=== PATIENT | male | born 1970 | race Caucasian/White ===

== ENCOUNTER 2018-06-03 13:38 | Emergency (ER) | payer OTHER ==
[2018-06-03 13:38] VITALS: BMI 30.1
[2018-06-03 13:53] VITALS: O2SAT 97
--- NOTE | 2018-06-03 14:42 | RAD ---
HISTORY: COMPARISON: 11/08/2014. TECHNIQUE: Chest PA and lateral FINDINGS: LINES AND TUBES: None. LUNG AND PLEURA: The lungs are well inflated and clear. No pleural effusion or pneumothorax. HEART AND MEDIASTINUM: The heart is not enlarged. The hilar and mediastinal contours are within normal limits. SKELETAL STRUCTURES: The bony structures are within normal limits for the patient's age. VISUALIZED UPPER ABDOMEN: Normal. OTHER FINDINGS: None. IMPRESSION: No active pulmonary disease.
[2018-06-03 14:44] LABS: BASO % 0.3 % (0.0-2.0); EOS # 0.2 K/uL (0.0-0.7); HEMOGLOBIN 13.7 g/dL (12.0-18.0); LYMPH # 1.6 K/uL (1.0-4.3); LYMPH % 28.4 % (20.0-40.0); MEAN CELL VOLUME 83.2 fL (80.0-94.0); MEAN CORPUSCULAR HEMOGLOBIN 27.4 pg (27.0-31.0); MEAN CORPUSCULAR HGB CONC 32.9 g/dL (33.0-37.0); MEAN PLATELET VOLUME 9.7 fL (7.2-11.7); MONO # 0.6 K/uL (0.0-0.8); MONO % 10.7 % (0.0-10.0); NEUT # 3.2 K/uL (1.8-7.0); NEUT % 57.6 % (50.0-75.0); NRBC % 0.1 % (0.0-2.0); RBC 4.99 Mil/uL (4.40-5.90); RED CELL DISTRIBUTION WIDTH 14.1 % (11.5-14.5); WHITE BLOOD COUNT 5.6 K/uL (4.8-10.8)
--- NOTE | 2018-06-03 14:47 | C.PDOC ---
History Of Present Illness 48 year old male with PMHx of pericarditis , hypertension presents to the ED for an evaluation of left upper chest pain. Patient states pain is worse with strenuous activity and intermittent for the past 3 days. He reports he had similar pain in the past when he was diagnosed with pericarditis. Otherwise, Patient denies any recent trauma, illness, fever, chills, headache, dizziness, visual changes, focal deficits, SOB, palpitations, diaphoresis, dyspnea, abd. pain, nausea, vomiting, back pain, UTI sx, denies any other symptoms. Ambulate to ED for evaluation, not in nay apparent distress. Pt unable to recall last stress test. LAst ECHO- 1 ys ago outpt with normal results. Time Seen by Provider: 06/03/18 14:06 Chief Complaint (Nursing): Chest Pain History Per: Patient History/Exam Limitations: no limitations Onset/Duration Of Symptoms: Days Current Symptoms Are (Timing): Still Present Quality: "Pain" Associated Symptoms: denies: Nausea, Dyspnea, Diaphoresis Exacerbating Factors: Movement, Exertion Past Medical History Reviewed: Historical Data, Nursing Documentation, Vital Signs Vital Signs: Last Vital Signs Temp 99.0 F 06/03/18 15:36 Pulse 63 06/03/18 15:36 Resp 16 06/03/18 15:36 BP 132/72 06/03/18 15:36 Pulse Ox 97 06/03/18 16:01 - Medical History PMH: HTN, Pericarditis Denies: Chronic Kidney Disease Surgical History: Appendectomy - [facility] Procedures ESOPHAGOGASTRODUODENOSCOPY [EGD] W/CLOSED BIOPSY (11/26/14) Family History: States: No Known Family Hx - Social History Hx Tobacco Use: No Hx Alcohol Use: Yes (social) Hx Substance Use: No - Immunization History Hx Tetanus Toxoid Vaccination: Yes Hx Influenza Vaccination: Yes Hx Pneumococcal Vaccination: Yes Review Of Systems Except As Marked, All Systems Reviewed And Found Negative. Constitutional: Negative for: Fever, Chills, Sweats Cardiovascular: Positive for: Chest Pain (Left upper chest pain). Negative for : Palpitations Respiratory: Negative for: Shortness of Breath Gastrointestinal: Negative for: Nausea Physical Exam - Physical Exam Appears: Non-toxic, No Acute Distress Skin: Warm, Dry, No Rash, No Ecchymosis Head: Normacephalic Eye(s): bilateral: PERRL Nose: No Flaring Oral Mucosa: Moist Throat: No Drooling Neck: Trachea Midline, Supple Chest: Symmetrical, No Deformity, No Tenderness Cardiovascular: Rhythm Regular, No Murmur, No JVD, Other ((-) carotid bruits B/L ) Respiratory: No Accessory Muscle Use, No Rales, No Rhonchi, No Stridor, No Wheezing Gastrointestinal/Abdominal: Soft, No Tenderness Back: No CVA Tenderness Extremity: Normal ROM, No Pedal Edema, No Deformity, No Swelling Neurological/Psych: Oriented x3, Normal Speech Gait: Steady ED Course And Treatment - Laboratory Results Result Diagrams: 06/03/18 14:41 06/03/18 14:41 Lab Interpretation: No Acute Changes ECG: Interpreted By Me, Viewed By Me ECG Rhythm: Sinus Rhythm Interpretation Of ECG: SR@50/min, LAD, T wave inversion in III, no acute ST-T changes O2 Sat by Pulse Oximetry: 97 (RA) Pulse Ox Interpretation: Normal - Radiology CXR: Interpreted by Me, Read By Radiologist CXR Interpretation: Yes: No Acute Disease. No: Cardiomegaly Progress Note: On re-eval, pt is afebrile, hemodynamically stable. Non-toxic. PulseOx 97% on RA. ENT: no acute findings. Neck: Supple, (-) JVD, (-) carotid bruits. Lungs: CTA B/L, BS equal B/L. CVS: (+)S1S2, reg. ABd: benign. Neurologically intact. Blood work review and appears without acute abnormalities, Troponin I (-),. EKG, CXR- no acute findings. case discussed with and admission to tele OBS with Dx: Chest pain recommend. results review and discussed with pt, refused admission at present time, reports, " I havo no pain now. I need work noted for today". Risk of leaving AMA discussed with pt, including . Pt understand, agrees with risk. Pt reports, " I will follow up with my PMD, have scheduled appoitment on 06/13/18". Pt advised return to ED at any time to complete evaluation. Against Medical Advice - AMA Patient Left Against Medical Advice: The patient declines admission to the hospital and wishes to leave the Emergency Department. This action is against my medical advice. This decision was made with informed refusal. The patient was told that admission to the hospital is necessary. Explanation of the reasons why were discussed. The risks of leaving were explained to the patient and include, but are not limited to, worsening of known or currently unknown conditions, permanent disability and from undiagnosed or untreated conditions. The patient has the capacity to make this informed decision and understands my explanation of the current medical problem and risks of leaving. The patient voluntarily accepts these risks and signed an AMA form documenting our conversation. The patient was given the opportunity to ask questions and reconsider. The patient was encouraged to return to the Emergency Department at any time for further care. Disposition - Disposition Referrals: [facility] [Outside] Ismael Obrien MD [Staff Provider] - Disposition: AGAINST MEDICAL ADVICE Disposition Time: 15:58 Condition: STABLE Instructions: Chest Pain Forms: [facility] (Azeri), Work Excuse Print Language: MONTENEGRIN - Clinical Impression Clinical Impression: Chest pain - PA / CUSTOMER RELATIONS COORDINATOR / Resident Statement MD/DO has reviewed & agrees with the documentation as recorded. - Scribe Statement The provider has reviewed the documentation as recorded by the Scribpavel Rubio All medical record entries made by the Amy were at my direction and personally dictated by me. I have reviewed the chart and agree that the record accurately reflects my personal performance of the history, physical exam, medical decision making, and the department course for this patient. I have also personally directed, reviewed, and agree with the discharge instructions and disposition.
[2018-06-03 14:56] LABS: ALB/GLOB RATIO 1.3 (1.0-2.1); ALBUMIN 4.2 g/dL (3.5-5.0); ALT/SGPT 37 U/L (21-72); AST/SGOT 20 U/L (17-59); BLOOD UREA NITROGEN 19 mg/dL (9-20); CALCIUM 8.8 mg/dl (8.6-10.4); GFR AFRICAN-AMERICAN > 60; GFR NON-AFRICAN AMERICAN > 60; INR 1.1; PROTHROMBIN TIME 12.3 SECONDS (9.7-12.2)
[2018-06-03 15:00] LABS: URINE BILIRUBIN NEGATIVE (NEGATIVE); URINE BLOOD 2+ (NEGATIVE); URINE CLARITY Clear (Clear); URINE COLOR Yellow (YELLOW); URINE GLUCOSE (UA) NORMAL (Normal); URINE LEUKOCYTE ESTERASE NEG Leu/uL (Negative); URINE PROTEIN NEGATIVE (NEGATIVE); URINE UROBILINOGEN NORMAL mg/dL (0.2-1.0)
[2018-06-03 15:37] VITALS: BP 132/72; PULSE 63; RESP 16; TEMP 99
== END 2018-06-03 16:25 | disposition left against medical advice (07) ==
LOC: C.ER 13:38
DX: R07.9 Chest pain, unspecified (principal); I10 Essential (primary) hypertension; I31.9 Disease of pericardium, unspecified

== ENCOUNTER 2019-03-10 10:54 | Emergency (ER) | payer OTHER ==
[2019-03-10 10:54] VITALS: BMI 30.1
[2019-03-10 11:12] VITALS: O2SAT 100
[2019-03-10 12:21] LABS: BASO % 0.2 % (0.0-2.0); EOS # 0.1 K/uL (0.0-0.7); EOS % 2.6 % (0.0-4.0); HEMOGLOBIN 13.8 g/dL (12.0-18.0); LYMPH # 1.2 K/uL (1.0-4.3); LYMPH % 27.4 % (20.0-40.0); MEAN CORPUSCULAR HEMOGLOBIN 28.1 pg (27.0-31.0); MEAN CORPUSCULAR HGB CONC 33.1 g/dL (33.0-37.0); MONO # 0.4 K/uL (0.0-0.8); MONO % 9.8 % (0.0-10.0); NEUT # 2.7 K/uL (1.8-7.0); NRBC % 0.1 % (0.0-2.0); RBC 4.92 Mil/uL (4.40-5.90); RED CELL DISTRIBUTION WIDTH 14.1 % (11.5-14.5); WHITE BLOOD COUNT 4.5 K/uL (4.8-10.8)
[2019-03-10 12:30] LABS: INR 1.2; PARTIAL THROMBOPLASTIN TIME 34.2 SECONDS (21-34); PROTHROMBIN TIME 12.6 SECONDS (9.7-12.2)
[2019-03-10 12:36] LABS: ALB/GLOB RATIO 1.3 (1.0-2.1); ALBUMIN 4.3 g/dL (3.5-5.0); ALT/SGPT 29 U/L (21-72); AST/SGOT 25 U/L (17-59); BLOOD UREA NITROGEN 16 mg/dL (9-20); GFR NON-AFRICAN AMERICAN > 60; LIPASE 86 U/L (23-300)
--- NOTE | 2019-03-10 12:45 | CT ---
Date of service: 03/10/2019 PROCEDURE: CT HEAD WITHOUT CONTRAST. HISTORY: lea/dizzy COMPARISON: None available. TECHNIQUE: Axial computed tomography images were obtained through the head/brain without intravenous contrast. Radiation dose: Total exam DLP = 1171.45 mGy-cm. This CT exam was performed using one or more of the following dose reduction techniques: Automated exposure control, adjustment of the mA and/or kV according to patient size, and/or use of iterative reconstruction technique. FINDINGS: HEMORRHAGE: No intracranial hemorrhage. BRAIN: No mass effect or edema. No atrophy or chronic microvascular ischemic changes. VENTRICLES: Unremarkable. No hydrocephalus. CALVARIUM: Unremarkable. PARANASAL SINUSES: Unremarkable as visualized. No significant inflammatory changes. MASTOID AIR CELLS: Unremarkable as visualized. No inflammatory changes. OTHER FINDINGS: None. IMPRESSION: No evidence of acute intracranial hemorrhage mass effect or midline shift.
--- NOTE | 2019-03-10 12:54 | C.PDOC ---
History Of Present Illness 48 y/o male, with history of hypertension and hyperlipidemia, comes in to ED with complaints of headache, dizziness, and lightheadedness for the past 4 days. Patient is a poor historian and cant elaborate more of his symptoms. Sta rocío that hes suffocating. He denies fever, nausea, vomiting, or other complaints. in er in nad. no syncope. speakin g full sentences in nad. Time Seen by Provider: 03/10/19 11:27 Chief Complaint (Nursing): Dizziness/Lightheaded History Per: Patient History/Exam Limitations: no limitations Onset/Duration Of Symptoms: Days Current Symptoms Are (Timing): Still Present Past Medical History Reviewed: Historical Data, Nursing Documentation, Vital Signs Vital Signs: Last Vital Signs Temp 98.1 F 03/10/19 11:09 Pulse 72 03/10/19 11:09 Resp 18 03/10/19 11:09 BP 168/72 H 03/10/19 11:09 Pulse Ox 100 03/10/19 11:09 Primary Care Provider: Clinic,Med Surg - Medical History PMH: HTN, Hypercholesterolemia, Pericarditis Denies: Chronic Kidney Disease Surgical History: Appendectomy - [facility] Procedures ESOPHAGOGASTRODUODENOSCOPY [EGD] W/CLOSED BIOPSY (11/26/14) Family History: States: No Known Family Hx - Social History Hx Tobacco Use: No Hx Alcohol Use: Yes (social) Hx Substance Use: No - Immunization History Hx Tetanus Toxoid Vaccination: Yes Hx Influenza Vaccination: Yes Hx Pneumococcal Vaccination: No Review Of Systems Except As Marked, All Systems Reviewed And Found Negative. Constitutional: Negative for: Fever, Chills Cardiovascular: Positive for: Light Headedness. Negative for: Chest Pain Respiratory: Negative for: Shortness of Breath Gastrointestinal: Negative for: Nausea, Vomiting Neurological: Positive for: Headache, Dizziness Physical Exam - Physical Exam Appears: Non-toxic, No Acute Distress Skin: Warm, Dry Head: Normacephalic Eye(s): bilateral: Normal Inspection Oral Mucosa: Moist Neck: Supple Cardiovascular: Rhythm Regular, No Murmur Respiratory: Normal Breath Sounds, No Rales, No Rhonchi, No Wheezing Gastrointestinal/Abdominal: Soft, No Tenderness Extremity: Bilateral: Atraumatic, Normal ROM Neurological/Psych: Oriented x3, Normal Speech, Normal Cognition ED Course And Treatment - Laboratory Results Result Diagrams: 03/10/19 12:17 03/10/19 12:17 Lab Results: PT 12.6 SECONDS (9.7-12.2) H 03/10/19 12:17 INR 1.2 03/10/19 12:17 APTT 34.2 SECONDS (21-34) H 03/10/19 12:17 Troponin I < 0.0120 ng/mL (0.00-0.120) 03/10/19 12:17 Total Bilirubin 1.0 mg/dL (0.2-1.3) 03/10/19 12:17 AST 25 U/L (17-59) 03/10/19 12:17 ALT 29 U/L (21-72) 03/10/19 12:17 Alkaline Phosphatase 49 U/L (38-126) 03/10/19 12:17 Total Protein 7.5 g/dL (6.3-8.3) 03/10/19 12:17 Albumin 4.3 g/dL (3.5-5.0) 03/10/19 12:17 Globulin 3.2 gm/dL (2.2-3.9) 03/10/19 12:17 Albumin/Globulin Ratio 1.3 (1.0-2.1) 03/10/19 12:17 Lipase 86 U/L (23-300) 03/10/19 12:17 ECG: Interpreted By Me, Viewed By Me ECG Rhythm: Sinus Rhythm ECG Interpretation: Normal Interpretation Of ECG: No ST/T wave changes. Rate From EC O2 Sat by Pulse Oximetry: 100 (RA) Pulse Ox Interpretation: Normal - Other Rad chest XR X-Ray: Read By Radiologist Interpretation: FINDINGS: LUNGS: Clear. PLEURA: No pneumothorax or pleural fluid seen. CARDIOVASCULAR: No aortic atherosclerotic calcification present. Normal. OSSEOUS STRUCTURES: No significant abnormalities. VISUALIZED UPPER ABDOMEN: Normal. OTHER FINDINGS: None. IMPRESSION: No active disease. - CT Scan/US Head CT Other Rad Studies (CT/US): Read By Radiologist, Radiology Report Reviewed CT/US Interpretation: FINDINGS: HEMORRHAGE: No intracranial hemorrhage. BRAIN: No mass effect or edema. No atrophy or chronic microvascular ischemic changes. VENTRICLES: Unremarkable. No hydrocephalus. CALVARIUM: Unremarkable. PARANASAL SINUSES: Unremarkable as visualized. No significant inflammatory changes. MASTOID AIR CELLS: Unremarkable as visualized. No inflammatory changes. OTHER FINDINGS: None. IMPRESSION: No evidence of acute intracranial hemorrhage mass effect or midline shift. Medical Decision Making Medical Decision Making: will r/o intrcranial metobolci cardiac infectious etiology very poor historain in er in nad Plan: --Head CT --EKG --Labs --Chest XR labs imaging neg. pt seen at [facility] specifically requests dc instead of further obs. advise outpt fu return precautions Disposition - Disposition Referrals: [facility] [Outside] [facility] [Outside] Disposition: HOME/ ROUTINE Disposition Time: 15:00 Condition: GOOD Additional Instructions: return to er with worsening. followup with your doctor/clinic. Instructions: Dizziness, Nonvertigo, (DC), Near Fainting Forms: [facility] (Sinhala), Work Excuse - Clinical Impression Clinical Impression: Dizziness - Scribe Statement The provider has reviewed the documentation as recorded by the Jordiibpavel Webb Provider Attestation: All medical record entries made by the Jordiibpavel were at my direction and personally dictated by me. I have reviewed the chart and agree that the record accurately reflects my personal performance of the history, physical exam, medical decision making, and the department course for this patient. I have also personally directed, reviewed, and agree with the discharge instructions and disposition.
--- NOTE | 2019-03-10 13:33 | RAD ---
Date of service: 03/10/2019 PROCEDURE: CHEST RADIOGRAPH, 1 VIEW HISTORY: chest pain COMPARISON: 06/03/2018 FINDINGS: LUNGS: Clear. PLEURA: No pneumothorax or pleural fluid seen. CARDIOVASCULAR: No aortic atherosclerotic calcification present. Normal. OSSEOUS STRUCTURES: No significant abnormalities. VISUALIZED UPPER ABDOMEN: Normal. OTHER FINDINGS: None. IMPRESSION: No active disease.
[2019-03-10 15:18] VITALS: BP 112/62; PULSE 77; RESP 18; TEMP 98.4
--- NOTE | 2019-03-13 13:36 | CARD ---
APPROVED REPORT Date of service: 03/10/2019 EKG Measurement Heart [id number] <Conclusion> Normal sinus rhythm Normal ECG
== END 2019-03-10 15:19 | disposition home or self-care (01) ==
LOC: C.ER 10:54
DX: R42 Dizziness and giddiness (principal)